=== PATIENT | female | born 1985 | race Caucasian/White ===

== ENCOUNTER 2018-06-30 13:16 | Emergency (ER) | payer OTHER ==
[~2018-06-30] VITALS: Ht 157.5 cm; Wt 72.6 kg
[~2018-06-30 13:16] MED LIST: ASPI81CT89 PO
[2018-06-30 13:22] VITALS: BP 127/58
--- NOTE | 2018-06-30 13:22 | NUR ---
PT AMBULATED TO ED BED 3
--- NOTE | 2018-06-30 13:24 | NUR ---
PT C/O HEADACHE X 5 DAYS ON L TEMPORAL REGION. NO OTHER COMLPAINTS. DENIES N/V/D, CP OR SOB. HX: DVT MEDS: NONE
[2018-06-30] MEDS ORDERED: KETOROLAC 30 MG/ML VIAL IM ONE (15:15)
--- NOTE | 2018-06-30 15:18 | NUR ---
DOCTOR MADE AWARE ABOUT PT C/O HEADACHE.
--- NOTE | 2018-06-30 15:38 | NUR ---
ADMINISTERED MEDICATION ORDERED. TOLERATING WELL.
[2018-06-30 16:16] LABS: APPEARANCE,URINE CLEAR (CLEAR); BILIRUBIN,URINE NEGATIVE (NEGATIVE); BLOOD, URINE NEGATIVE (NEGATIVE); COLOR,URINE YELLOW (YELLOW); LEUKOCYTE ESTERASE ,URINE NEGATIVE (NEGATIVE); NITRITE, URINE NEGATIVE (NEGATIVE); UGLUCOSE NEGATIVE (NEGATIVE)
[2018-06-30 16:27] VITALS: BP 120/78
--- NOTE | 2018-06-30 16:27 | NUR ---
Patient discharged with v/s stable. Written and verbal after care instructions given and explained. Patient alert, oriented and verbalized understanding of instructions. Ambulatory with steady gait. All questions addressed prior to discharge. ID band removed. Patient advised to follow up with PMD. Rx of FLEXERIL, MOTRIN AND NORCO given. Patient educated on indication of medication including possible reaction and side effects. Opportunity to ask questions provided and answered.
== END 2018-06-30 16:25 | disposition home or self-care (01) ==
LOC: MED 13:16
DX: S16.1XXA Strain of muscle, fascia and tendon at neck level, initial encounter (principal); G44.209 Tension-type headache, unspecified, not intractable; Z79.1 Long term (current) use of non-steroidal anti-inflammatories (NSAID); X58.XXXA Exposure to other specified factors, initial encounter; Y93.89 Activity, other specified; Y92.89 Other specified places as the place of occurrence of the external cause; Y99.8 Other external cause status
CPT/HCPCS: 81003; 81025; 96372; 99283; J1885